=== PATIENT | male | born 1955 | race Caucasian/White ===

== ENCOUNTER → 2019-04-08 | Day surgery (SDC) | payer OTHER ==
[~2019-04-08] MED LIST: IV RINGERS,LACTATED 1000ML 1,000 ML IV ONE; LIDOCAINE 2% PF 5 ML VIAL. ONE; OMEP20TA8 PO; PROPOFOL 40 ML IV ONE
[2019-04-08 11:19] VITALS: BP 140/75
--- NOTE | 2019-04-08 11:42 | CONS ---
DATE OF CONSULTATION: 04/08/2019 GASTROENTEROLOGY CONSULTATION REFERRING PHYSICIAN: Dr. Arlin Santo. REASON FOR CONSULTATION: Family history of colon cancer and colorectal screening. HISTORY OF PRESENT ILLNESS: A 63-year-old male with past medical history significant for GERD, hyperlipidemia, status post hernia repair, seen for screening colon exam. Bowel habits are regular without diarrhea or constipation. There has been no melena and/or hematochezia. Family history is positive for colon cancer with grandfather. He is otherwise without additional complaints. PAST MEDICAL HISTORY: Hyperlipidemia, GERD, status post umbilical hernia repair. ALLERGIES: AMOXICILLIN. MEDICATIONS: Omeprazole 20 mg daily. SOCIAL HISTORY: He is a social drinker, nonsmoker. FAMILY HISTORY: Significant for colon cancer with grandfather. REVIEW OF SYSTEMS: Per records. PHYSICAL EXAMINATION: GENERAL: Reveals a well-nourished, well-developed male who is alert, cooperative, in no acute distress. VITAL SIGNS: Temperature 97, pulse 77, respirations 20. HEENT: Normocephalic, atraumatic head. Pupils and extraocular muscles are not tested. Sclerae anicteric. NECK: Supple. LUNGS: Clear. CARDIOVASCULAR: Reveals an S1, S2 without S3, S4 or appreciable murmur. ABDOMEN: Reveals a soft abdomen, normal bowel sounds, without appreciable hepatosplenomegaly with umbilical hernia incision. EXTREMITIES: Reveals no cyanosis, clubbing or edema. IMPRESSION: Colorectal screening is warranted at this time. Risks and benefits of procedure including risk of hemorrhage and perforation during the operation have been discussed. The patient is willing to proceed. ADRIANA SMITH MD DR: GARRETT/fernandez JOB#: [id number] / [id number] [facility] Arlin Santo
--- NOTE | 2019-04-10 14:06 | PATHOLOGY ---
[facility] Accession Number: [id number] . 01 Material submitted: . sigmoid colon - SIGMOID POLYP . 01 Clinical history: . CRCS . 02 Diagnosis: Colon, sigmoid, biopsy: - Hyperplastic polyp. (SKM/db; 04/10/2019) LBQ 04/10/2019 0930 Local . 02 Electronically signed: . Sami Mccabe MD, Pathologist NPI- [id number] . 01 Gross description: . The specimen is received in formalin, labeled "Waqas [place]rol[place], sigmoid polyp". Received is a segment of pale resendiz soft tissue measuring 0.7 cm in maximum dimensions. The specimen is submitted entirely in cassette A1. (CAA; 04/08/2019) QAC/QAC 04/08/2019 1550 Local . 02 Pathologist provided ICD-10: K63.5 . 02 CPT . 410101 Specimen Comment: A courtesy copy of this report has been sent to [phone] Specimen Comment: [id number] Specimen Comment: Report sent to / DR DANIELS Performed at: 01 [facility] [address], [place] [id number] MD Hemanth Gallo MD Phone: [phone] Performed at: 02 [facility] [address] [place], [place] [id number] MD Gary Yan MD Phone: [phone]
== END ==
LOC: SURG 07:51
PROVIDERS: ATTEND Internal Medicine Gastroenterology
DX: Z12.11 Encounter for screening for malignant neoplasm of colon (principal); K63.5 Polyp of colon; K57.30 Diverticulosis of large intestine without perforation or abscess without bleeding; K21.9 Gastro-esophageal reflux disease without esophagitis; K64.0 First degree hemorrhoids; E78.5 Hyperlipidemia, unspecified; Z88.1 Allergy status to other antibiotic agents; Z72.89 Other problems related to lifestyle
CPT/HCPCS: 45385; 88305; J2001; J2704; 45384